=== PATIENT | female | born 1990 | race Two or more races ===

== ENCOUNTER 2024-12-10 09:19 | Emergency (ER) | payer OTHER ==
[~2024-12-10] VITALS: Ht 165.1 cm; Wt 109.0 kg
--- NOTE | 2024-12-10 10:44 | ED.PDOC ---
History of Present Illness HPI Comments 34 y/o F, with PSHx gastric bypass, presents to the ED for CC of wound check. Patient reports, that she had bariatric surgery on (12/01/24) at [facility]– [place]. Following procedure, patient has now been experiencing purulent drainage with associated tenderness and erythema to the incision site. Patient relays, being febrile last night (12/09/24) with an oral temperature of 102F. Upon arrival to the ED, patient is tachycardiac at 127bpm and has a low grade fever at 99.1F. Patient denies nausea, vomiting, fatigue, or weakness. No other symptoms or modifying factors are present at this time. 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 Family History Family History: Unknown Social History Smoker: Non-Smoker Alcohol: Denies ETOH Use Drugs: Denies Drug Use Lives In: Home Constitutional: reports: fever; denies: chills, diaphoresis, fatigue, malaise, sweats, weakness, others EENTM: denies: blurred vision, double vision, ear bleeding, ear discharge, ear drainage, ear pain, ear ringing, eye pain, eye redness, hearing loss, mouth pain, mouth swelling, nasal discharge, nose bleeding, nose congestion, nose pain, photophobia, tearing, throat pain, throat swelling, voice changes, others Respiratory: denies: cough, hemoptysis, orthopnea, SOB at rest, shortness of breath, SOB with excertion, stridor, wheezing, others Cardiovascular: denies: chest pain, dizzy spells, diaphoresis, Dyspnea on exertion, edema, irregular heart beat, left arm pain, lightheadedness, palpitations, PND, syncope, others Gastrointestinal: denies: abdomen distended, abdominal pain, blood streaked bowels, constipated, diarrhea, dysphagia, difficulty swallowing, hematemesis, melena, nausea, poor appetite, poor fluid intake, rectal bleeding, rectal pain, vomiting, others Genitourinary: denies: abnormal vagina bleeding, burning, dyspareunia, dysuria, flank pain, frequency, hematuria, incontinence, pain, , vagina discharge, urgency, others Neurological: denies: dizziness, fainting, headache, left sided numbness, left sided weakness, numbness, paresthesia, pre-existing deficit, right sided numbness, right sided weakness, seizure, speech problems, tingling, tremors, weakness, others Musculoskeletal: denies: back pain, gout, joint pain, joint swelling, muscle pain, muscle stiffness, neck pain, others Integumetry: reports: laceration (pain to RLQ incision site); denies: bruises, change in color, change in hair/nails, dryness, lesions, lumps, rash, wounds Allergic/Immunocompromised: denies: Difficulty Healing, Frequent Infections, Hives, Itching, others Endocrine: denies: excessive hunger, excessive sweating, excessive thirst, excessive urination, flushing, intolerance to cold, intolerance to heat, unexplained weight gain, unexplained weight loss, others Psychiatric: denies: anxiety, bipolar disorder, depression, hopeless, panic disorder, schizophrenia, sleepless, suicidal, others All Other Systems: Reviewed and Negative Physical Exam General Appearance: Moderate Distress, Obese HEENT: Normal ENT Inspection, Pharynx Normal, TMs Normal Neck: Full Range of Motion, Non-Tender, Normal, Normal Inspection Respiratory: Chest Non-Tender, Lungs Clear, No Accessory Muscle Use, No Respiratory Distress, Normal Breath Sounds Cardiovascular: No Edema, No JVD, No Murmur, No Gallop, Normal Peripheral Pulses, Regular Rate/Rhythm, Tachycardia Breast Exam: Deferred Gastrointestinal: No Organomegaly, Non Tender, No Pulsatile Mass, Normal Bowel Sounds, Soft Genitalia: Deferred Pelvic: Deferred Rectal: Deferred Extremities: No calf tenderness, Normal capillary refill, Normal inspection, Normal range of motion, Non-tender, No pedal edema Musculoskeletal : Apperance: Normal Neurologic: Alert, No Motor Deficits, No Sensory Deficits Cerebellar Function: NOT DONE Reflexes: NOT DONE Skin: Wounds (Surgical) Peripheral Pulses: 3+ Radial (R), 3+ Radial (L) Lymphatic: No Adenopathy Was a procedure done? Was a procedure done?: No Differential Dx Considerations may include: Post-operative complication, cellulitis X-Ray, Labs, Meds, VS Vital Signs Date Time Temp Pulse Resp B/P (MAP) Pulse Ox O2 Delivery O2 Flow Rate FiO2 12/10/24 09:22 99.1 126 22 107/70 97 99.1 Lab Test 12/10/24 11:00 Range/Units White Blood Count 28.9 H 4.4-10.8 10^3/uL Red Blood Count 5.02 4.0-5.20 10^6/uL Hemoglobin 12.4 12.2-16.2 g/dL Hematocrit 38.1 36.0-46.0 % Mean Corpuscular Volume 75.8 L 80.0-100.0 fL Mean Corpuscular Hemoglobin 24.8 L 28.0-32.0 pg Mean Corpuscular Hemoglobin Concent 32.7 32.0-36.0 g/dL Red Cell Distribution Width 16.1 H 11.8-14.3 % Platelet Count 504 H 140-450 10^3/uL Mean Platelet Volume 7.2 6.9-10.8 fL Neutrophils (%) (Auto) 37.0-80.0 % Lymphocytes (%) (Auto) 10.0-50.0 % Monocytes (%) (Auto) 0.0-12.0 % Basophils (%) (Auto) 0.0-2.0 % Neutrophils # (Auto) 1.6-8.6 10 ^3/uL Lymphocytes # (Auto) 0.4-5.4 10 ^3/uL Monocytes # (Auto) 0-1.3 10 ^3/uL Differential Total Cells Counted 100.0 100 Neutrophils % (Manual) 86 H 37.0-80.0 Band Neutrophils % (Manual) 0 Lymphocytes % (Manual) 6 L 10.0-50.0 Monocytes % (Manual) 8 0-12 Eosinophils % (Manual) 0 0-7 Basophils % (Manual) 0 0.0-2.0 Metamyelocytes % (manual) 0 Myelocytes % (Manual) 0 Promyelocytes % (Manual) 0 Blast Cells % (Manual) 0 Reactive Lymphocytes 0 Platelet Estimate Increased Hypochromasia (manual) Slight Microcytosis Slight Sodium Level 133 L 136-145 mmol/L Potassium Level 2.6 L 3.5-5.1 mmol/L Chloride Level 92 L 98-107 mmol/L Carbon Dioxide Level 28 20-31 mmol/L Anion Gap 13 5-15 Blood Urea Nitrogen 6 L 9-23 mg/dL Creatinine 0.59 0.550-1.02 mg/dL Glomerular Filtration Rate Calc 120 >90 mL/min BUN/Creatinine Ratio 10.2 10.0-20.0 Serum Glucose 102 74-106 mg/dL Calcium Level 9.2 8.7-10.4 mg/dL Patient alert. Has a surgical wound. Vitals stable. Answering all questions. Establish intravenous access. Was given fluids. Sepsis protocol. Establish intravenous access. Was given fluids. Was given Zosyn. Was given Flagyl. No leg swelling. No shortness a breath. No chest pain. [place] approved ER visit [id number]. Time of 1ST Reevaluation: 11:45 Reevaluation 1ST: Unchanged Patient Education/Counseling: Diagnosis, Treatment Family Education/Counseling: No Family Present SEPSIS Sepsis Screen Date sepsis recognized/suspect: Dec 10, 2024 Time Sepsis recognized/suspect: 926 Recent Procedure: No On Antibiotic Therapy: No Respiratory Rate >20: Yes Heart Rate >90: Yes Temp<36 C (96.8 F) or >38.3 C: No SBP <90 or MAP <65 mmHG: No New Acute Mental Status Change: No Is the patient on CPAP, BIPAP,: No Physician Orders Urinalysis (12/10/24 10:49) Piperacillin-Tazob 3.375gm (Zosyn 3.375g (12/10/24 11:00) Metronidazole 500mg/100ml (Flagyl 500mg/ (12/10/24 11:00) Sodium Chloride 0.9% (12/10/24 11:00) Sodium Chloride 0.9% (12/10/24 11:00) Vital Signs Date Time Temp Pulse Resp B/P (MAP) Pulse Ox O2 Delivery O2 Flow Rate FiO2 12/10/24 09:22 99.1 126 22 107/70 97 99.1 Laboratory Tests Test 12/10/24 11:00 White Blood Count 28.9 10^3/uL (4.4-10.8) H Departure 1 Departure Time of Disposition: 10:53 Impression: Primary Impression: Sepsis, unspecified organism Qualified Codes: A41.9 - Sepsis, unspecified organism Disposition: 02 SHORT TERM HOSPITAL Admit to: Med Surg Condition: Guarded Critical Care Note Critical Care Time?: No Stability Stability form required: No Heart Score Heart Score: Heart Score Response (Comments) Value History N/A 0 EKG N/A 0 Age N/A 0 Risk Factors N/A 0 Troponin N/A 0 Total 0 I personally scribed for CHANEL PIERCE MD ([email or web address]) on 12/10/24 at 10:44. Electronically submitted by Gita Fitch [email or web address]). CHANEL PIERCE MD Dec 10, 2024 10:44
[2024-12-10 11:20] LABS: Hemoglobin 12.4 g/dL (12.2-16.2)
[2024-12-10 11:22] LABS: Hematocrit 38.1 % (36.0-46.0); Mean Corpuscular Hemoglobin 24.8 pg (28.0-32.0); Mean Corpuscular Volume 75.8 fL (80.0-100.0)
[2024-12-10 11:30] LABS: Anion Gap 13 (5-15); Carbon Dioxide 28 mmol/L (20-31)
[2024-12-10 11:31] LABS: Calcium 9.2 mg/dL (8.7-10.4); Chloride 92 mmol/L (98-107); Potassium 2.6 mmol/L (3.5-5.1); Sodium 133 mmol/L (136-145)
[2024-12-10 11:36] LABS: BUN/Creatinine Ratio 10.2 (10.0-20.0); Blood Urea Nitrogen 6 mg/dL (9-23); Glucose 102 mg/dL (74-106)
[2024-12-10 11:52] LABS: Total Cells Counted 100.0 (100)
[2024-12-10 13:00] VITALS: PULSE 111; RESP 15; O2SAT 98
[2024-12-10] MEDS: SODIUM CHLORIDE 0.9% 1,000 ML IV ONE ×2 (13:30→14:08)
[2024-12-10] MEDS: POTASSIUM EFFERVESENT TAB 25 MEQ PO ONE (13:30)
[2024-12-10 13:55] VITALS: BP 106/53; PULSE 112; RESP 17; O2SAT 98
[2024-12-10 14:07] VITALS: TEMP 100.3
[2024-12-10] MEDS: ACETAMINOPHEN 325 MG TAB PO ONE (14:07)
[2024-12-10] MEDS: PIPERACILLIN-TAZOB 3.375GM 100 ML IV ONE (14:08)
== END 2024-12-10 14:38 | disposition short-term general hospital (02) ==
LOC: ER 09:19
DX: A41.9 Sepsis, unspecified organism (principal); Z98.84 Bariatric surgery status; Z98.51 Tubal ligation status; Z79.899 Other long term (current) drug therapy
CPT/HCPCS: 36415; 80048; 85007; 85027; 96360; 99285; J7030